=== PATIENT | female | born 1960 | race Hispanic/Latino ===

== ENCOUNTER 2020-01-08 13:51 | Emergency (ER) | payer OTHER ==
[~2020-01-08] VITALS: Ht 154.9 cm; Wt 70.8 kg
[2020-01-08] MEDS ORDERED: IBUPROFEN 600 MG TAB ONE (14:29)
[2020-01-08] MEDS ORDERED: ONDANSETRON HCL 4 MG ORAL DISINTEGRATING TAB PO ONE (14:30)
[2020-01-08] MEDS ORDERED: IBUPROFEN 200 MG TAB PO ONE (14:30)
[2020-01-08] MEDS ORDERED: HYDROCODONE/APAP 5MG-325MG TAB PO ONE (14:30)
[2020-01-08] MEDS ORDERED: DEXAMETHASONE SOD PHOS 10 MG/1 ML VIAL IM ONE (14:30)
--- NOTE | 2020-01-08 14:30 | Emergency Department Note ---
History of Present Illnes History of Present Illness History of Present Illness This is a 59 year old female hx of RA, off her Methotrexate for 2 months due to robert Covid, c/o worsening joint pains for weeks. She was seen by her doctor who prescribed her steroid orally but not getting better. . 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 Any updates have been documented here. Past Medical History Recent Fever: No Clinical Suspicion of Infectio: No New/Unexplained Change in Ment: No Past Medical History: Osteoarthritis Social History Smoking Cessation: Never Smoker Any Illegal Drug Use: No TB Exposure/Symptoms: No Physically hurt or threatened: No Other Any Pre-Existing Lines (PICC,: No Review of Systems Review of Systems Constitutional: Reports no symptoms EENTM: Reports no symptoms Cardiovascular: Reports no symptoms Respiratory: Reports no symptoms Gastrointestinal: Reports no symptoms Genitourinary: Reports no symptoms Musculoskeletal: Reports joint pain, Reports muscle pain Integumentary: Reports no symptoms Neurological: Reports no symptoms Psychological: Reports no symptoms Endocrine: Reports no symptoms Hematological/Lymphatic: Reports no symptoms Physical Exam Physical Exam CONSTITUTIONAL Constitutional: Present well-developed, Present well-nourished HENT HENT: Present normocephalic, Present atraumatic, Present oropharynx clear/moist, Present nose normal HENT L/R: Present left ext ear normal, Present right ext ear normal EYES Eyes: Reports PERRL, Reports conjunctivae normal NECK Neck: Present ROM normal PULMONARY Pulmonary: Present effort normal, Present breath sounds normal CARDIOVASCULAR Cardiovascular: Present regular rhythm, Present heart sounds normal, Present capillary refill normal, Present normal rate GASTROINTESTINAL Abdominal: Present soft, Present nontender, Present bowel sounds normal GENITOURINARY Genitourinary: Present exam deferred SKIN Skin: Present warm, Present dry MUSCULOSKELETAL Musculoskeletal: Present ROM normal, Present tenderness, Present swelling (knees ) NEUROLOGICAL Neurological: Present alert, Present oriented x 3, Present no gross motor or sensory deficits PSYCHOLOGICAL Psychological: Present mood/affect normal, Present judgement normal Assessment & Plan Medical Decision Making MDM flare of RA Reassessment Reassessment doing better, walks steady gait. Assessment & Plan Final Impression: (1) Rheumatoid arthritis flare (2) Acute joint pain Depart Disposition: HOME, SELF-CARE Medications in the ED Acetaminophen/ Hydrocodone Bitart 1 ea ONCE ONCE PO ; Start 01/08/20 at 14:30; Stop 01/08/20 at 14:31; Status UNV Ibuprofen 600 mg NOW ONCE PO ; Start 01/08/20 at 14:30; Stop 01/08/20 at 14:31; Status UNV Ondansetron HCl 4 mg ONCE ONCE PO ; Start 01/08/20 at 14:30; Stop 01/08/20 at 14:31; Status UNV Dexamethasone Sodium Phosphate 10 mg ONCE ONCE IM ; Start 01/08/20 at 14:30; Stop 01/08/20 at 14:31; Status UNV Physician Attestation Provider Attestation tramadol/apap, Ibuprofen, prednisone 50 mg qd for 5 days. RETINA SUBSPECIALIST web search: no record MANFRED NEW MD Jan 08, 2020 14:30
--- OUTSIDE RECORDS SUMMARY | 2020-01-08 15:00 | XMS REPORT | Continuity of Care Document ---
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 Allergies, Adverse Reactions, Alerts Allergy Name Allergy Type Status Severity Reaction(s) Onset Date Inacti ve Date Treating Clinician Comments Source Penicillins DA Active [place] 2013-10-16 00:00:00 [facility] Medications This patient has no known medications. Procedures This patient has no known procedures. Results Test Description Test Time Test Comments Results Result Comments Source - CT ABD PELVIS W/CONT 2019-11-26 06:10:00 Luis e: FERNANDA RUCKER [facility] : 1960 Age/S: 59 / F [address] [facility] Unit #: [id number] Loc: [place] [address] Phys: Sallie Blackburn MD Acct: [id number] Dis Date: Status: REG ER PHONE #: [phone] Exam Date: 11/26/2019 0601 FAX #: [phone] Reason: pain, elev lft's EXAMS: CPT CODE: [id number] CT ABD PELVIS W/CONT 80352 AFTER HOURS SERVICE ON: 11/26/2019 6:[address] Scan of the Abdomen and Pelvis With Contrast Location Code M12 History: pain, elev lft's Technique: Axial and reconstructed coronal scans were performed on a helical scanner post IV contrast. Delayed scans were also obtained. One or more of the following dose reduction techniques were used: Automated exposure control, adjustment of the mA and/or kV according to patient size, and/or utilization of iterative reconstruction technique. Findings: There are patchy groundglass infiltrates in the lung bases consistent with pneumonia. Liver is hypodense consistent with steatosis. Gallbladder is surgically absent. There are no peripancreatic inflammatory changes. There is a small rounded spleen or splenule. There are too small to characterize hypodense lesions in the kidneys have a cyst characteristics. There is no hydronephrosis or pyelonephritis in either kidney. Adrenal glands are symmetric and unremarkable. Bladder is incompletely filled. Uterus and adnexa are within normal limits. There is no pelvic free fluid. Diverticular changes are seen in the colon without evidence of diverticulitis. Small bowel loops are unremarkable. The appendix is normal. There is no bowel obstruction or free air. IMPRESSION: Bibasilar groundglass infiltrates consistent with pneumonia. COVID precautions recommended. Diverticulosis coli without diverticulitis. Hepatic steatosis. Cholecystectomy. PAGE 1 Signed Report (CONTINUED) Name: FERNANDA RUCKER [facility] : 1960 Age/S: 59 / F [address] [facility] Unit #: [id number] Loc: [place] [address] Phys: Sallie Blackburn MD Acct: [id number] Dis Date: Status: REG ER PHONE #: [phone] Exam Date: 11/26/2019 06 FAX #: [phone] Reason: pain, elev lft's EXAMS: CPT CODE: [id number] CT ABD PELVIS W/CONT [id number] <Continued> at 0610 Reported and signed by: Partha Davies M.D. CC: Aj Butler; Sallie Blackburn MD Technologist:ORA GARBER RTFernanda Barbosa CTDI: DLP: Trnscb Date/Time: 11/26/2019 (609) [email or web address] Orig Print D/T: S: 11/26/2019 (612) PAGE 2 Signed Report COMPREHENSIVE METABOLIC PANEL 2019-11-26 05:16:00 Test Item SODIUM (test code = NA) 134 mmol/L 136-145 L POTASSIUM (test code = K) 3.4 mmol/L 3.5-5.1 L CHLORIDE (test code = CL) 101.0 mmol/L 98-107 N CARBON DIOXIDE (test code = CO2) 26.0 mmol/L 21-32 N ANION GAP (test code = GAP) 10.4 10-20 N GLUCOSE (test code = GLU) 155 mg/dL 74-106 H BLOOD UREA NITROGEN (test code = BUN) 7 mg/dL 7-18 N GLOMERULAR FILTRATION RATE (test code = GFR) > 60 mL/min >=60 Estimated GFR by using Modified MDRD formula.Chronic kidney disease is defined as either kidney damageor GFR <60 mL/min/1.73 m2 for >3 months. CREATININE (test code = CREAT) 0.50 mg/dL 0.55-1.02 L Note change in reference range due to change in reagent. BUN/CREATININE RATIO (test code = BUN/CREA) 15.2 10-20 N TOTAL PROTEIN (test code = PROT) 8.4 gram/dL 6.4-8.2 H ALBUMIN (test code = ALB) 3.1 g/dL 3.4-5.0 L GLOBULIN (test code = GLOB) 5.3 gram/dL 2.7-4.2 H ALBUMIN/GLOBULIN RATIO (test code = A/G) 0.6 0.75-1.50 L CALCIUM (test code = CA) 9.2 mg/dL 8.5-10.1 N BILIRUBIN TOTAL (test code = BILT) 0.30 mg/dL 0.0-1.0 N SGOT/AST (test code = AST) 178 IUnit/L 15-37 H SGPT/ALT (test code = ALT) 190 IUnit/L 12-78 H ALKALINE PHOSPHATASE TOTAL (test code = ALKP) 157 IUnit/L 45-117 H Note change in reference range due to change in reagent. [id number] 05:16:00* Test Item Value Reference Range Interpretation Comments TROPONIN-I (test code = TROPI) <0.015 ng/mL 0-0.045 N CBC W/AUTO [id number] 05:10:00* Test Item Value Reference Range Interpretation Comments WHITE BLOOD CELL (test code = WBC) 8.0 K/mm3 4.5-12.5 N RED BLOOD CELL (test code = RBC) 4.25 mill/mm3 3.7-5.2 N HEMOGLOBIN (test code = HGB) 11.8 gram/dL 11.5-15.5 N HEMATOCRIT (test code = HCT) 35.4 % 36.0-46.0 L MEAN CELL VOLUME (test code = MCV) 83.3 fL 80-98 N MEAN CELL HGB (test code = MCH) 27.8 picogram 27.0-33.0 N MEAN CELL HGB CONCETRATION (test code = MCHC) 33.3 gram/dL 33.0-36. 0 N RED CELL DISTRIBUTION WIDTH (test code = RDW) 14.1 % 11.6-16. 2 N RED CELL DISTRIBUTION WIDTH SD (test code = RDW-SD) 42.3 fL 37 .0-51.0 N PLATELET COUNT (test code = PLT) 340 K/mm3 150-450 N MEAN PLATELET VOLUME (test code = MPV) 11.1 fL 6.7-11.0 H NEUTROPHIL % (test code = NT%) 78.2 % 39.0-69.0 H IMMATURE GRANULOCYTE % (test code = IG%) 0.7 % 0.0-5.0 N LYMPHOCYTE % (test code = LY%) 11.8 % 25.0-55.0 L MONOCYTE % (test code = MO%) 9.2 % 0.0-10.0 N EOSINOPHIL % (test code = EO%) 0.0 % 0.0-5.0 N BASOPHIL % (test code = BA%) 0.1 % 0.0-1.0 N NUCLEATED RBC % (test code = NRBC%) 0.0 % 0-0 N NEUTROPHIL # (test code = NT#) 6.27 K/mm3 1.8-7.7 N IMMATURE GRANULOCYTE # (test code = IG#) 0.06 x10 3/uL 0-0.03 H LYMPHOCYTE # (test code = LY#) 0.95 K/mm3 1.0-5.0 L MONOCYTE # (test code = MO#) 0.74 K/mm3 0-0.8 N EOSINOPHIL # (test code = EO#) 0.00 K/mm3 0.0-0.5 N BASOPHIL # (test code = BA#) 0.01 K/mm3 0.0-0.2 N NUCLEATED RBC # (test code = NRBC#) 0.00 K/mm3 0.0-0.1 N COMPREHENSIVE METABOLIC [id number] 04:55:00* Test Item Value Reference Range Interpretation Comments SODIUM (test code = NA) 134 mmol/L 136-145 L POTASSIUM (test code = K) 3.4 mmol/L 3.5-5.1 L CHLORIDE (test code = CL) 101.0 mmol/L 98-107 N CARBON DIOXIDE (test code = CO2) mmol/L 21-32 ANION GAP (test code = GAP) 10-20 GLUCOSE (test code = GLU) mg/dL 74-106 BLOOD UREA NITROGEN (test code = BUN) mg/dL 7-18 GLOMERULAR FILTRATION RATE (test code = GFR) mL/min >=60 CREATININE (test code = CREAT) mg/dL 0.55-1.02 BUN/CREATININE RATIO (test code = BUN/CREA) 10-20 TOTAL PROTEIN (test code = PROT) gram/dL 6.4-8.2 ALBUMIN (test code = ALB) g/dL 3.4-5.0 GLOBULIN (test code = GLOB) gram/dL 2.7-4.2 ALBUMIN/GLOBULIN RATIO (test code = A/G) 0.75-1.50 CALCIUM (test code = CA) mg/dL 8.5-10.1 BILIRUBIN TOTAL (test code = BILT) mg/dL 0.0-1.0 SGOT/AST (test code = AST) IUnit/L 15-37 SGPT/ALT (test code = ALT) IUnit/L 12-78 ALKALINE PHOSPHATASE TOTAL (test code = ALKP) IUnit/L 45-117 [id number] 04:55:00* Test Item Value Reference Range Interpretation Comments TROPONIN-I (test code = TROPI) ng/mL 0-0.045 CBC W/AUTO [id number] 04:47:00* Test Item Value Reference Range Interpretation Comments WHITE BLOOD CELL (test code = WBC) K/mm3 4.5-12.5 RED BLOOD CELL (test code = RBC) mill/mm3 3.7-5.2 HEMOGLOBIN (test code = HGB) 11.8 gram/dL 11.5-15.5 N HEMATOCRIT (test code = HCT) % 36.0-46.0 MEAN CELL VOLUME (test code = MCV) fL 80-98 MEAN CELL HGB (test code = MCH) picogram 27.0-33.0 MEAN CELL HGB CONCETRATION (test code = MCHC) gram/dL 33.0-36. 0 RED CELL DISTRIBUTION WIDTH (test code = RDW) % 11.6-16. 2 RED CELL DISTRIBUTION WIDTH SD (test code = RDW-SD) fL 37 .0-51.0 PLATELET COUNT (test code = PLT) K/mm3 150-450 MEAN PLATELET VOLUME (test code = MPV) fL 6.7-11.0 NEUTROPHIL % (test code = NT%) % 39.0-69.0 IMMATURE GRANULOCYTE % (test code = IG%) % 0.0-5.0 LYMPHOCYTE % (test code = LY%) % 25.0-55.0 MONOCYTE % (test code = MO%) % 0.0-10.0 EOSINOPHIL % (test code = EO%) % 0.0-5.0 BASOPHIL % (test code = BA%) % 0.0-1.0 NEUTROPHIL # (test code = NT#) K/mm3 1.8-7.7 LYMPHOCYTE # (test code = LY#) K/mm3 1.0-5.0 MONOCYTE # (test code = MO#) K/mm3 0-0.8 EOSINOPHIL # (test code = EO#) K/mm3 0.0-0.5 BASOPHIL # (test code = BA#) K/mm3 0.0-0.2 - XR [facility] 1 [id number] 04:07:00 FAX: Aj Vaca MD [phone] [place]: [address] St: [facility] FAX: Sallie Blackburn MD [phone] Name: HCAIMFERNANDA [facility] : 1960 Age/S: 59/F [address] Unit #: [id number] Loc: [place], [place] [address] Phys: Sallie Blackburn MD Acct: [id number] Dis Date: Status: REG ER PHONE #: [phone] Exam Date: 11/26/2019 0355 FAX #: [phone] Reason: sob, pain EXAMS: CPT CODE: [id number] XR CHEST 1 V [id number] AFTER HOURS SERVICE ON: 11/26/2019 4:07 AM AP Portable Chest Location Code M12 HISTORY: sob, pain FINDINGS: There are bilateral groundglass infiltrates with slight basilar predominance. There are no pleural effusions. There is no pneumothorax. Cardiac silhouette and mediastinum appear within normal limits. IMPRESSION: Bilateral groundglass infiltrates, slightly more pronounced in the lung bases, consistent with pneumonia. at 0407 Reported and signed by: Partha Davies M.D. CC: Aj Butler; Sallie Blackburn MD Technologist: RT JESSICA(R) Trnscrd Date/Time/By: 11/26/2019 (406) : By: [email or web address] Orig Print D/T: S: 11/26/2019 (7743) PAGE 1 Signed Report
== END 2020-01-08 14:44 | disposition home or self-care (01) ==
LOC: FSED 13:51
DX: M06.9 Rheumatoid arthritis, unspecified (principal); M25.562 Pain in left knee; M25.561 Pain in right knee
CPT/HCPCS: 96372; 99283; J1100; Q0162